=== PATIENT | female | born 1950 | race Caucasian/White ===

== ENCOUNTER 2024-01-06 18:11 | Emergency (ER) | payer MEDICARE, SELFPAY ==
--- NOTE | ~2024-01-06 | CT_ITS ---
CTA chest abdomen pelvis Ordering provider: Murray Hennessy MD History: . rectal bleeding, concern for ca. . Comparison: None. Technique: CT angiogram chest, abdomen and pelvis was performed following timed intravenous injection of contrast. Thin slice axial images and reformatted coronal images were obtained. Three dimensional reformatted images of the chest were also obtained using a [employer] workstation. 100 mL Omnipaque 350 was given IV. Radiation reduction technique utilized. DLP is 1893.31mGy-cm. FINDINGS: CHEST: --THORACIC AORTA: Mild atheromatous disease. No aneurysm, dissection or mediastinal hematoma. --GREAT VESSELS: Normal as visualized. --PULMONARY ARTERIES: No pulmonary embolus. --VISUALIZED THORACIC INLET: Normal. --MEDIASTINUM: Coronary arteries: Mild atheromatous disease. Heart/other: The heart is not enlarged. Lymph nodes: No mediastinal or hilar adenopathy. --LUNGS: Groundglass appearance is seen in both lungs suggestive of atelectasis versus pneumonia versus pulmon rashmi edema. Nodule is seen in the right lower lobe measuring 6 mm. Adjacent smaller nodules are also n oted. 5 mm nodule is seen in the right upper lobe. Thickening of the pleura with minimal effusion see n in the lung bases posteriorly. No pulmonary masses. No effusions. No pneumothorax. --MUSCULOSKELETAL: Superficial soft tissues: The superficial soft tissues are normal. Bones: Age appropriate degenerative changes of the spine. ABDOMEN/PELVIS: --MUSCULOSKELETAL: Bones: Age appropriate degenerative changes of the spine. Pubic symphysitis. Bilateral sacroiliitis. Superficial soft tissues: Fat containing umbilical hernia is noted. Otherwise, The superficial soft t issues are normal. --UPPER ABDOMINAL ORGANS: Liver: Hepatomegaly. Gallbladder: Normal. Spleen: 2 cystic areas are seen in the spleen with the largest measures 5.5 cm and the smallest measu res 2.4 cm. These may be cysts and less likely abscess. Smaller one is also seen inferiorly measuring 1.1 cm Clinical correlation advised. Stomach/duodenum: Normal. Pancreas: Normal. Adrenals: Normal. Kidneys: The right kidney is not demonstrated. --PELVIC ORGANS: The bladder is normal. No bladder stones. The uterus is normal. --BOWEL AND MESENTERY: Colon: Multiple diverticula with hyperdense material is seen which may be fecal material. No definite active bleeding. Normal appendix. Small Bowel: Normal. No obstruction. Peritoneum/mesentery: No free air or free fluid. No mesenteric lymphadenopathy. --RETROPERITONEUM: No retroperitoneal lymphadenopathy. --ARTERIES: ABDOMINAL AORTA: Mild atheromatous disease. No aneursym or dissection. RENAL ARTERIES: Mild atherosclerotic changes on the left. The right kidney is absent. CELIAC AXIS: Atherosclerotic changes. SMA: Atherosclerotic changes. PAMELA: Atherosclerotic changes at the origin. ILIAC AND VISUALIZED FEMORAL ARTERIES: Atherosclerotic changes. MESENTERIC ARTERIES: Normal. IMPRESSION: CHEST: 1. No pulmonary embolism or aortic dissection. 2. Bilateral groundglass appearance which may indicate infection or edema or atelectasis. Clinical c orrelation advised. 3. Nodule seen in the right lower lobe measuring 6 mm. Other multiple small nodules are seen. 6 cristóbal hs follow-up advised. ABDOMEN/PELVIS: 1. No evidence of active bleeding seen in the perirectal area or in the colon. Multiple diverticula with hyperdense material most likely fecal material. Colonoscopy is advised. 2. Cystic areas in the spleen which are most likely cysts. Ultrasound evaluation advised. 3. Nonvisualization of the right kidney. Clinical correlation advised. 4. mild atherosclerotic changes in multiple vessels with no definite significant narrowing. 5. Fat-containing umbilical hernia.
[2024-01-06 18:15] VITALS: BP 125/77; PULSE 95; RESP 18; TEMP 36.2; O2SAT 91
--- NOTE | 2024-01-06 19:00 | PC.NURSE ---
assumed care. report received from Seema SMITH. patient is resting on stretcher. call light in reach
--- NOTE | 2024-01-06 19:10 | ED.GIBLEED ---
HPI - GI Bleed General Chief complaint: GI Bleed Stated complaint: RECTAL BLEEDING Time Seen by Provider: 01/06/24 19:05 Limitations: no limitations History of Present Illness HPI Narrative: 73-year-old white female with a history of diabetes, hypertension, hypo thyroidism, apparently on Coumadin but does not seem to know why presents with an episode a little bit before arrival where she felt the urge to defecate, dried up and headed towards the bathroom, was unable to make it in time, was incontinent just as she got to the stool, sat down on the commode finished up, and there was blood in the stool, and some blood clots in her underwear. She denies any symptoms prior to this episode, reports she was completely surprised. she denies recent sinus drainage, sore throat, cough, chest pain, palpitations, near-syncope or syncope, shortness of breath, denied abdominal pain, nausea vomiting, diarrhea or constipation, black stool, tarry stools, dysuria urgency, reports she always has frequency. Related Data Home Medications Medication Instructions Recorded Confirmed atorvastatin 40 mg tablet 40 mg PO DAILY 01/06/24 01/06/24 glimepiride 2 mg tablet 2 mg PO DAILY 01/06/24 01/06/24 levothyroxine 75 mcg tablet 1 mcg PO DAILY 01/06/24 01/06/24 lisinopril 10 1 tablet PO DAILY 01/06/24 01/06/24 mg-hydrochlorothiazide 12.5 mg tablet metformin 500 mg tablet,extended 300 mg PO TID 01/06/24 01/06/24 release 24 hr warfarin 2 mg tablet See Rx Instructions .Route .COMPLEX 01/06/24 01/06/24 Allergies Allergy/AdvReac Type Severity Reaction Status Date / Time No Known Allergies Allergy Unknown Unverified 01/06/24 18:42 LATEX Allergy Mild BLISTERS Uncoded 01/06/24 18:42 Review of Systems Review of Systems: All systems reviewed & are unremarkable except as noted in HPI and below Exam Const: General: no acute distress, alert and well nourished Nutritional Appearance: well nourished and obese ( severe central morbid obesity with massive pannus) Orientation/consciousness: patient oriented x3 Limitations: no limitations HENMT: Head: normal to inspection Ears: external ears normal Face/Nose/Sinus: Normal external nose present and normal facial exam Face and sinus: normal facial exam Mouth: Yes Normal oral and palatal mucosa present Teeth and gingiva: dentition normal Throat: posterior oropharynx normal Eyes: Conjunctivae: conjunctivae normal Pupils: Equal, round and reactive pupils present EOM: EOMs intact bilaterally Neck: Neck: normal visual inspection and no meningeal signs Chest: Chest palpation & inspection: normal inspection of the chest Resp: Effort & Inspection: normal respiratory effort Auscultation: clear to auscultation bilaterally Other: muffled and distant Cardio: Rate: regular rate Rhythm: regular rhythm Other: muffled and distant GI: GI Palp: Yes Soft to palpation, Yes Tenderness to palpation present (GI), No Guarding due to palpation present (GI), No Rigid due to palpation and No Rebound tenderness present Other: No mass, no organomegaly, no percussion or rebound tenderness massive pannus Skin: Wounds: no wounds Other: patient with thickened lower extremities skin with some pigmentation, brawny edema, consistent with chronic venous stasis, no evidence of cellulitis Neuro: General: patient oriented x3, moves all extremities, no meningeal signs, no focal motor deficits and CN's II-XI intact bilaterally Cranial nerves: Yes Equal, round and reactive pupils present and Yes Nystagmus not present Speech: normal speech Gait exam (Neuro): Normal gait present Extrem: Other: as noted above Psych: Mental Status: mental status grossly normal Attitude: cooperative Course Vital Signs Vital signs: Vital Signs Temperature 36.2 C L 01/06/24 18:15 Pulse Rate 95 01/06/24 18:15 Respiratory Rate 18 01/06/24 18:15 Blood Pressure 125/77 01/06/24 18:15 Pul
[2024-01-06 19:11] VITALS: BP 120/83; PULSE 86; RESP 18; O2SAT 92
[2024-01-06] MEDS: PANTOPRAZOLE SODIUM IV 40 MG VIAL 80 MG IV PUSH (19:28)
[2024-01-06] MEDS: LACTATED RINGERS 1,000 ML 999 ML IV CONT (19:28)
[2024-01-06 19:30] LABS: Basophils Absolute Auto 0.05 K/mm3 (0.00-0.10); Basophils Percent Auto 0.6 % (0.0-1.0); Eosinophils Absolute Auto 0.15 K/mm3 (0.02-0.50); Eosinophils Percent Auto 1.9 % (1.0-6.0); Hematocrit 40.2 % (35.0-42.0); Hemoglobin 13.1 g/dL (11.7-13.8); Immature Granulocyte Absolute 0.08 K/mm3 (0.00-0.00); Lymphocytes Absolute Auto 2.05 K/mm3 (1.10-4.50); Mean Corpuscular HGB Conc 32.6 g/dL (32-36); Mean Corpuscular Hemoglobin 33.9 pg (27.0-31.0); Mean Corpuscular Volume 103.9 fL (78.0-102.0); Mean Platelet Volume 9.9 fl (9.2-11.8); Monocytes Absolute Auto 0.58 K/mm3 (0.10-0.90); Monocytes Percent Auto 7.4 % (2.0-11.0); Neutrophils Absolute Auto 4.97 K/mm3 (1.70-7.20); Neutrophils Percent Auto 63.1 % (50.0-70.0); Platelet Count Result 194 K/mm3 (150-420); Red Blood Count 3.87 M/mm3 (4.20-5.40); Red Cell Distribution Width 13.2 % (11.6-14.4); White Blood Count 7.9 K/mm3 (4.8-10.8)
--- NOTE | 2024-01-06 19:32 | PC.NURSE ---
urine taken to the lab
[2024-01-06 19:45] LABS: Alanine Aminotransferase 24 U/L (14-59); Albumin Level 2.9 g/dL (3.4-5.0); Alkaline Phosphatase 87 U/L (46-116); Anion Gap 10 mmol/L (4-12); Aspartate Amino Transferase 12 U/L (15-37); Bilirubin,Total 0.2 mg/dL (0.00-1.00); Blood Urea Nitrogen 15 mg/dL (7-18); Calcium 8.3 mg/dL (8.5-10.1); Carbon Dioxide 26 mmol/L (21-32); Chloride 106 mmol/L (98-108); Estimated CRCL calculation 58 ml/min; Estimated Glomerular Filt Rate 53; Glucose 334 mg/dL (70-99); Lipase 28 U/L (16-77); Magnesium 1.5 mg/dL (1.8-2.4); Osmolality Calculated 307 mOsm/kg (285-295); Potassium 4.4 mmol/L (3.5-5.1); Sodium 142 mmol/L (136-145); Total Protein 6.3 g/dL (6.4-8.2)
[2024-01-06 19:52] LABS: INR 4.2; Partial Thromboplastin Time 38.3 Sec (23.9-30.70); Prothrombin Time 41.5 Seconds (9.50-12.1)
--- NOTE | 2024-01-06 20:10 | PC.NURSE ---
patient was taken to ct and back to room via stretcher. at her side
--- NOTE | 2024-01-06 20:21 | PC.NURSE ---
patient is resting on stretcher. currently denies any needs. LR continues to infuse to left ac without difficulty. encouraged patient to keep left arm straight to help fluids infuse. patient verbalized understanding. call light in reach
--- NOTE | 2024-01-06 21:15 | PC.NURSE ---
patient is resting on stretcher. is at her side. call light in reach. patient ambulated to the bathroom and back to room without difficulty.
--- NOTE | 2024-01-06 22:08 | PC.NURSE ---
resting on stretcher. requesting results. informed patient that provider would be down soon to talk to her about results. patient is watching tv with
--- NOTE | 2024-01-06 22:20 | PC.NURSE ---
apologized to patient and for delay in care. currently awaiting ct results. patient getting frustrated in length of stay
--- NOTE | 2024-01-06 23:11 | PC.NURSE ---
patient is ready to go home. is pacing in the hallway. er provider is aware
--- NOTE | 2024-01-06 23:18 | PC.NURSE ---
patient wanted iv line removed. done. patient reports that she will be leaving with or without discharge instructions. dr gaston has been notified.
--- NOTE | 2024-01-06 23:40 | PC.NURSE ---
ER provider at the bedside
[2024-01-06 23:48] VITALS: BP 126/80; PULSE 82; RESP 18; O2SAT 96
--- NOTE | 2024-01-07 12:47 | PC.NURSE ---
PT CALLED, RX WAS NOT RECEIVED ORDERED PER DR ABEBE. CALL PLACED TO [facility] . RX FOR ZOFRAN AND PROTONIX CALLED IN .
--- NOTE | 2024-01-07 12:59 | PC.NURSE ---
RX CALLED IN TO [facility]
== END 2024-01-06 23:48 | disposition home or self-care (01) ==
PROVIDERS: Emergency Provider Emergency Medicine; PCP Family Medicine
DX: K62.5 Hemorrhage of anus and rectum (principal); D68.9 Coagulation defect, unspecified; E11.9 Type 2 diabetes mellitus without complications; I10 Essential (primary) hypertension; E03.9 Hypothyroidism, unspecified; Z79.01 Long term (current) use of anticoagulants; Z79.899 Other long term (current) drug therapy; Z79.84 Long term (current) use of oral hypoglycemic drugs; Z86.711 Personal history of pulmonary embolism; Z86.718 Personal history of other venous thrombosis and embolism
CPT/HCPCS: 36415; 71275; 74174; 80053; 83690; 83735; 85025; 85610; 85730; 86850; 86900; 86901; 96361; 96374; 99284; J2470; J7120; Q9967

== ENCOUNTER 2024-03-02 21:23 | Emergency (ER) | payer MEDICARE, SELFPAY ==
[2024-03-02] VITALS (11 sets, daily range): BP systolic 90–138; BP diastolic 43–68; PULSE 112–133; RESP 18–34; TEMP 37.3; O2SAT 88–93
--- NOTE | ~2024-03-02 | CT_ITS ---
EXAMINATION: CTA chest PE protocol DATE: 03/02/2024 23:24 INDICATION: Shortness of breath. TECHNIQUE: Computed tomography angiography (CTA) of the chest was performed with 200 mL Omnipaque-350 intravenous contrast timed to evaluate the pulmonary arteries. Coronal maximum intensity projection 3D-reconstructions were created by the technologist. Automated exposure control and iterative reconst ruction technique were employed. The dose-length product was 993.43 mGy-cm. COMPARISON: Chest CT 01/06/2024 FINDINGS: The lungs demonstrate mild atelectasis. No pleural effusion. The heart size is normal. Ther e are coronary artery calcifications. No pericardial effusion. There is no pulmonary embolus. There i s a small sliding hiatal hernia. There is a 6.5 cm mass in the spleen. There is a 1.6 cm cyst in the spleen. There are bridging endplate osteophytes at multiple levels in the spine, consistent with diff use idiopathic skeletal hyperostosis (DISH). There is severe cervical spondylosis. IMPRESSION: 1. No pulmonary embolus. 2. 6.5 cm mass in the spleen, which may be benign or less likely malignant. PET/CT is recommended. Reviewed, dictated and finalized at location A. IMPRESSION: 1. No pulmonary embolus. 2. 6.5 cm mass in the spleen, which may be benign or less likely malignant. PET /CT is recommended.
--- NOTE | ~2024-03-02 | XR_ITS ---
EXAMINATION: XR chest 1V portable DATE: 03/02/2024 21:57 INDICATION: Fever. TECHNIQUE: A single frontal view of the chest was obtained. COMPARISON: Chest 2 views 03/22/2005, chest CT 01/06/2024 FINDINGS: There is no pneumonia, pleural effusion, or pneumothorax. The heart size is normal. IMPRESSION: 1. No acute cardiopulmonary disease. Reviewed, dictated and finalized at location A.
--- NOTE | 2024-03-02 21:28 | PC.NURSE ---
patient being taken down to bathroom via wheel chair to give urine sample by Shamika cardoza
--- NOTE | 2024-03-02 21:38 | PC.NURSE ---
patient was unable to give urine sample at this time. ER provider aware. COVID swab being obtained by nani Wick
--- NOTE | 2024-03-02 21:40 | PC.NURSE ---
covid swab sent to lab
--- NOTE | 2024-03-02 21:40 | ED.FEVER ---
HPI - Fever General Chief Complaint: Fever Stated Complaint: Chills Source: patient Mode of arrival: ambulatory Limitations: no limitations History of Present Illness HPI Narrative: Patient is a 73-year-old female with chills this evening that makes her shake for the past few hours. She is slightly short of breath on exertion. Otherwise no complaints. patient also has diabetes and history of PE DVT / genetics positive for blood clotting disorder. Patient has left kidney and right kidney was removed with cancer 18 years ago. MD elicited complaint: malaise and other ( Chills) Pertinent past history: diabetes Onset (ago): hour(s) (3) Context: other ( acute onset of chills this evening with no other major complaints except some shortness of breath with exertion) Exacerbating factors: nothing Relieving factors: nothing Associated symptoms: chills, rigors and shortness of breath Treatments prior to arrival fever: none Related Data Home Medications Medication Instructions Recorded Confirmed atorvastatin 40 mg tablet 40 mg PO DAILY 01/06/24 01/06/24 glimepiride 2 mg tablet 2 mg PO DAILY 01/06/24 01/06/24 levothyroxine 75 mcg tablet 1 mcg PO DAILY 01/06/24 01/06/24 lisinopril 10 1 tablet PO DAILY 01/06/24 01/06/24 mg-hydrochlorothiazide 12.5 mg tablet metformin 500 mg tablet,extended 300 mg PO TID 01/06/24 01/06/24 release 24 hr warfarin 2 mg tablet See Rx Instructions .Route .COMPLEX 01/06/24 01/06/24 Allergies Allergy/AdvReac Type Severity Reaction Status Date / Time No Known Allergies Allergy Unknown Unverified 01/06/24 18:42 LATEX Allergy Mild BLISTERS Uncoded 01/06/24 18:42 Review of Systems Review of Systems: All systems reviewed & are unremarkable except as noted in HPI and below Constitutional: Constitutional: Reports no additional constitutional complaints Eyes: Eyes: Reports no additional eye complaints ENT: Reports system reviewed and no additional complaints, except as documented Cardiovascular: Cardiovascular: Reports no additional cardiovascular complaints Respiratory: Respiratory: Reports no additional respiratory complaints Gastrointestinal: Gastrointestinal: Reports no additional gastrointestinal complaints Genitourinary: Genitourinary: Reports no additional female genitourinary complaints Musculoskeletal: Musculoskeletal: Reports no additional musculoskeletal complaints Integumentary/Breasts: Skin/Breast: Reports system reviewed and no additional complaints, except as docu Neurologic: Reports system reviewed and no additional complaints, except as documented Psychiatric: Psychiatric: Reports no additional psychiatric complaints Endocrine: Endocrine: Reports no additional endocrine complaints Hematologic/Lymphatic: Hematologic/Lymphatic: Reports no additional hematologic/lymphatic complaints Allergic/Immunologic: Allergic/Immunologic: Reports no additional allergic/immunologic complaints Exam Const: General: ill appearing Nutritional Appearance: well nourished Orientation/consciousness: patient oriented x3 Limitations: no limitations HENMT: Head: normal to inspection Ears: external ears normal Face/Nose/Sinus: Normal external nose present Eyes: Conjunctivae: conjunctivae normal Pupils: Equal, round and reactive pupils present EOM: EOMs intact bilaterally Neck: Neck: normal visual inspection Chest: Chest palpation & inspection: normal inspection of the chest Resp: Effort & Inspection: normal respiratory effort and not labored Auscultation: not clear to auscultation bilaterally and crackles on the left at the base Cardio: Rate: tachycardic Rhythm: regular rhythm Heart sounds: no murmurs GI: Inspection: non-distended GI Palp: Yes Soft to palpation and No Tenderness to palpation present (GI) Auscultation: normal bowel sounds : General: Yes bladder normal to palpation Back/Spine/Pelvis: Back: no CVA tenderness Skin: General skin exam: normal color Rashes: no
--- NOTE | 2024-03-02 21:46 | PC.NURSE ---
Chula with lab was notified of new lab orders
--- NOTE | 2024-03-02 21:52 | PC.NURSE ---
xray at the bedside
[2024-03-02 22:16] LABS: Basophils Absolute Auto 0.04 K/mm3 (0.00-0.10); Basophils Percent Auto 0.5 % (0.0-1.0); Eosinophils Absolute Auto 0.05 K/mm3 (0.02-0.50); Eosinophils Percent Auto 0.6 % (1.0-6.0); Hematocrit 43.8 % (35.0-42.0); Hemoglobin 14.4 g/dL (11.7-13.8); Immature Granulocyte Absolute 0.05 K/mm3 (0.00-0.00); Immature Granulocyte Percent A 0.6 % (0.0-0.0); Lymphocytes Absolute Auto 0.42 K/mm3 (1.10-4.50); Lymphocytes Percent Auto 5.2 % (18.0-42.0); Mean Corpuscular HGB Conc 32.9 g/dL (32-36); Mean Corpuscular Hemoglobin 33.6 pg (27.0-31.0); Mean Corpuscular Volume 102.3 fL (78.0-102.0); Mean Platelet Volume 10.7 fl (9.2-11.8); Monocytes Percent Auto 2.5 % (2.0-11.0); Neutrophils Absolute Auto 7.35 K/mm3 (1.70-7.20); Neutrophils Percent Auto 90.6 % (50.0-70.0); Platelet Count Result 172 K/mm3 (150-420); Red Blood Count 4.28 M/mm3 (4.20-5.40); Red Cell Distribution Width 13.4 % (11.6-14.4); White Blood Count 8.1 K/mm3 (4.8-10.8)
--- NOTE | 2024-03-02 22:16 | PC.NURSE ---
patient up to bedside commode with oxygen in place. patient being helped by nani mendez
[2024-03-02 22:24] LABS: Add Urine Microscopic? YES; Appearance Urine Clear (Clear); Bilirubin Urine Negative (Negative); Blood Urine 1+ (Negative); Color Urine Light Yellow (Yellow); Glucose Urine UA 3+ (Negative); Ketones Urine Negative (Negative); Leukocyte Esterase Ur Negative LEU/UL (Negative); Nitrate Urine Positive (Negative); Protein Urine Negative (Negative); Urobilinogen Urine 0.2 mg/dL (0.2-1.0); pH Urine 5.5 (5.0-8.0)
--- NOTE | 2024-03-02 22:26 | PC.NURSE ---
WOB is labored when patient is getting in and out of bed to stretcher. currently, while patient is resting, she is at 91% on 2 liters nc.
[2024-03-02 22:31] LABS: INR 3.8; Partial Thromboplastin Time 36.2 Sec (23.9-30.70); Prothrombin Time 37.6 Seconds (9.50-12.1)
[2024-03-02 22:34] LABS: Bacteria Urine Trace /hpf; RBC Urine 21-50 /hpf (0-2); Squamous Epithelial Cell Urine Few /hpf (Few); WBC Urine 0-3 /hpf (0-3)
[2024-03-02 22:35] LABS: SARS-CoV-2 RNA PCR Negative (Negative)
[2024-03-02 22:38] LABS: Lactic Acid Reflex 2.1 mmol/L (0.4-2.0)
[2024-03-02 22:39] LABS: Alanine Aminotransferase 25 U/L (14-59); Albumin Level 3.1 g/dL (3.4-5.0); Alkaline Phosphatase 107 U/L (46-116); Anion Gap 10 mmol/L (4-12); Aspartate Amino Transferase 27 U/L (15-37); Bilirubin,Total 0.6 mg/dL (0.00-1.00); Blood Urea Nitrogen 24 mg/dL (7-18); Calcium 8.9 mg/dL (8.5-10.1); Carbon Dioxide 25 mmol/L (21-32); Chloride 101 mmol/L (98-108); Estimated Glomerular Filt Rate 44; Glucose 383 mg/dL (70-99); NT Pro B Type Natriuretic Pept 66 pg/mL (0-125); Osmolality Calculated 302 mOsm/kg (285-295); Potassium 4.6 mmol/L (3.5-5.1); Sodium 136 mmol/L (136-145); Total Protein 7.1 g/dL (6.4-8.2)
[2024-03-02 22:41] LABS: Influenza A QL RT-PCR Negative (Negative); Influenza B QL RT-PCR Negative (Negative); RSV RNA, RT-PCR Negative (Negative)
[2024-03-02] MEDS: PIPERACILLN/TAZ 3.375GM/NS50ML 3.375 GM/50 ML BAG IVPB (22:50)
[2024-03-02] MEDS: SODIUM CHLORIDE 0.9% IV 1,000 ML 999 ML IV CONT (22:50)
--- NOTE | 2024-03-02 22:55 | PC.NURSE ---
patient being transported to ct via stretcher.
--- NOTE | 2024-03-02 23:25 | PC.NURSE ---
patient returned to room via stretcher. placed back on compliance monitor. wob non labored while patient resting on stretcher. continues to have oxygen on at 2 liters nc
[2024-03-03] VITALS (30 sets, daily range): BP systolic 79–121; BP diastolic 42–82; PULSE 78–114; RESP 16–31; O2SAT 87–97
--- NOTE | 2024-03-03 00:08 | PC.NURSE ---
oxygen was turned off for ABG draw. SPO2 readings at 88% before turning oxygen back on to 2 liters
[2024-03-03 00:09] LABS: Base Excess ABG -1.1 mmol/L (0-2); HCO3 ABG 22.5 mmol/L (23-29); Oxygen Content ABG 17.3 %vol (16.0-22.0); Oxygen Saturation ABG 88.4 % (95-97); Oxyhemoglobin 87.5 % (94-100); PCO2 ABG 34.3 mmHg (35-45); pH ABG 7.44 (7.35-7.45)
[2024-03-03 00:18] LABS: Device ROOM AIR; Modified Allen's Test Pass; Site Drawn LEFT RADIAL
--- NOTE | 2024-03-03 00:18 | PC.NURSE ---
patient currently sitting on the side of the bed. states i cant lay on this hard stretcher anymore . patient then laughed at this RN. is at her side. call light in reach
[2024-03-03 00:19] LABS: Reflex Lactic Acid Yes or No Add Lactic
--- NOTE | 2024-03-03 00:26 | PC.NURSE ---
patient is up to bedside commode. standing out in the hallway. wob labored with exertion.
[2024-03-03 00:38] LABS: Lactic Acid 1.7 mmol/L (0.4-2.0)
--- NOTE | 2024-03-03 00:39 | PC.NURSE ---
patient is now sitting up in chair in the room. reports that she sleeps in a recliner at home. unable to lay back fully. is at her side. call light in reach.
[2024-03-03] MEDS: SODIUM CHLORIDE 0.9% IV 1,000 ML 999 ML IV CONT ×3 (00:44→02:19)
--- NOTE | 2024-03-03 01:37 | PC.NURSE ---
dr varma notified of current blood pressure
--- NOTE | 2024-03-03 01:49 | PC.NURSE ---
patient sitting up in chair. patient denies any symptoms. patient states that she feels good. blood pressure cuff has been moved around to bilateral arms. patient can not tolerate blood pressure being taken on her upper arms.
--- NOTE | 2024-03-03 03:00 | PC.NURSE ---
patient got up to use bedside commode. patient spo2 readings at 87% on 2 liters nc. wob labored with exertion. while patient was sitting on the bedside commode, spo2 readings would raise. patient denies any other symptoms other than exertional dyspnea at this time
[2024-03-03] MEDS: SODIUM CHLORIDE 0.9% IV 1,000 ML 150 ML IV CONT (03:02)
[2024-03-03] MEDS: PHYTONADIONE 5 MG TABLET 10 MG PO (03:37)
--- NOTE | 2024-03-03 04:18 | PC.NURSE ---
patient got self up to bedside commode. at her side.
[2024-03-03] MEDS: NOREPINEPHRINE 8 MG/D5W 250 ML 8 MG/250 ML BAG 9.38 MG IV CONT (04:58)
--- NOTE | 2024-03-05 13:09 | PC.NURSE ---
FINAL URINE CULTURE REPORT: MIXED GENITAL ROSLYN ISOLATED, NO FURTHER ORGANISM IDENTIFIED, NO FURTHER ACTION OR TREATMENT NEEDED.
--- NOTE | 2024-03-10 12:18 | PC.NURSE ---
FINAL BLOOD CULTURE REPORT: NO GROWTH AFTER 5 DAYS, NO FURTHER ACTION OR TREATMENT NEEDED.
== END 2024-03-03 05:25 | disposition short-term general hospital (02) ==
PROVIDERS: Emergency Provider Emergency Medicine; PCP Family Medicine
DX: A41.9 Sepsis, unspecified organism (principal); J18.9 Pneumonia, unspecified organism; R09.02 Hypoxemia; E11.9 Type 2 diabetes mellitus without complications; Z86.711 Personal history of pulmonary embolism; Z20.822 Contact with and (suspected) exposure to COVID-19
CPT/HCPCS: 36415; 36600; 71045; 71275; 80053; 81001; 82805; 83605; 83880; 85018; 85025; 85610; 85730; 87040; 87086; 87088; 87637; 96361; 96365; 96367; 99285; A9270; J2543; J7030; Q9967

== ENCOUNTER 2024-03-03 06:15 | Inpatient (IN) | payer MEDICARE, SELFPAY ==
[2024-03-03] VITALS (20 sets, daily range): BP systolic 96–127; BP diastolic 57–81; PULSE 78–94; RESP 15–25; TEMP 36.4–36.8; O2SAT 91–99; BMI 54.8
--- NOTE | ~2024-03-03 | XR_ITS ---
EXAMINATION: XR chest PICC line DATE: 03/03/2024 09:38 INDICATION: Sepsis. PICC line placement. TECHNIQUE: frontal view of the chest was obtained. COMPARISON: Chest radiograph and CT dated 03/02/2024 FINDINGS: Right upper extremity peripherally inserted central venous catheter (PICC) tip at the superior cavoa trial junction. Incidentally noted azygos lobe and fissure at the medial right upper lung zone. No ai rspace opacities, pulmonary edema, pleural effusion or pneumothorax. The cardiomediastinal silhouette is normal. IMPRESSION: 1. Right upper extremity PICC line tip at the superior cavoatrial junction. No acute cardiopulmonary disease. Reviewed, dictated and finalized at location A.
--- NOTE | 2024-03-03 06:13 | ADMGEN ---
This patient, Chelsey Ordaz, was admitted to Intensive Care Unit-6. Patient/family oriented to hospital policies and general routines including ID bracelet, bed and alarms, visiting hours, pain management, procedures, bathroom and other care routines, personal items, smoking policy, room service/diet, and visiting hours. Information on how to activate the Rapid Response Team has been discussed. Patient/Family are encouraged to report perceived risks to care and to ask questions if they do not understand what they are told or what they should do.
[2024-03-03 06:55] LABS: Basophils Absolute Auto 0.1 K/mm3 (0.0-0.1); Basophils Percent Auto 0.5 % (0.2-1.2); Eosinophils Percent Auto 0.4 % (0-4.4); Hematocrit 42.5 % (37.0-47.0); Hemoglobin 13.4 g/dL (12.0-15.0); Immature Granulocyte Absolute 0.05 K/mm3 (0.00-0.031); Immature Granulocyte Percent A 0.5 % (0-0.5); Lymphocytes Percent Auto 13.6 % (18.3-44.2); Mean Corpuscular HGB Conc 31.5 g/dl (32-36); Mean Corpuscular Hemoglobin 33.4 pg (26-34); Mean Platelet Volume 9.9 fl (7.4-10.4); Monocytes Absolute Auto 0.8 K/mm3 (0.1-0.6); Monocytes Percent Auto 7.1 % (2.6-8.5); Neutrophils Absolute Auto 8.6 K/mm3 (1.3-6.7); Neutrophils Percent Auto 77.9 % (45.5-73.1); Platelet Count Result 159 k/mm3 (150-375); Red Blood Count 4.01 M/mm3 (4.2-5.4); Red Cell Distribution Width 13.4 % (11.5-14.5)
[2024-03-03 07:04] LABS: Anion Gap 8 mmol/L (4-12); Blood Urea Nitrogen 20 mg/dL (7-17); Calcium 7.8 mg/dL (8.4-10.2); Carbon Dioxide 23 mmol/L (22-30); Chloride 106 mmol/L (98-107); Estimated CRCL calculation 73 ml/min; Estimated Glomerular Filt Rate > 60; Glucose 294 mg/dL (65-110); Lactic Acid Reflex 1.4 mmol/L (0.7-2.0); Magnesium 1.8 mg/dL (1.6-2.3); Sodium 137 mmol/L (137-145)
[2024-03-03 07:15] LABS: INR 2.5; Partial Thromboplastin Time 37.3 Seconds (22.3-36.8); Prothrombin Time 27.2 Seconds (11.1-14.7)
[2024-03-03 08:04] LABS: MRSA (PCR) NOT DETECTED (NOT DETECTE)
[2024-03-03 08:33] LABS: Glucose Point of Care 240 mg/dl (65-105)
--- NOTE | 2024-03-03 08:37 | WPDCNINT ---
Assessment and Plan Assessment and plan (1) Severe sepsis: Code(s): A41.9 - Sepsis, unspecified organism; R65.20 - Severe sepsis without septic shock Status: Acute Assessment and Plan: Patient presented with fevers and chills, malaise, hypotension requiring 4 L IV fluid bolus at the outside hospital ER despite which her blood pressures are low, patient was briefly started on phenylephrine and transferred to the ICU at [facility] -upon her arrival here at the ICU, blood pressures were stable, phenylephrine was discontinued, and patient remains off vasopressor -lactic acid 2.1 on admission, 1.4 this morning -blood pressures remain stable, not requiring any vasopressors -03/02/2024 blood cultures obtained and pending -03/22/2024 urine cultures obtained and pending -03/03: MRSA screen negative -patient started on Zosyn and vancomycin (03/02), will continue for now -03/02/2024 CTA chest: 1. No pulmonary embolus. 2. 6.5 cm mass in the spleen, which may be benign or less likely malignant. PET/CT is recommended. -03/02/2024 chest x-ray: No acute cardiopulmonary disease (2) History of pulmonary embolism: Code(s): Z86.711 - Personal history of pulmonary embolism Status: Inactive Assessment and Plan: Patient has a history of pulmonary embolism on Coumadin, therapeutic INR (3) Hypothyroidism: Code(s): E03.9 - Hypothyroidism, unspecified Status: Acute Assessment and Plan: Continue levothyroxine (4) Hyperlipidemia: Code(s): E78.5 - Hyperlipidemia, unspecified Status: Acute Assessment and Plan: Continue home statin (5) GERD (gastroesophageal reflux disease): Code(s): K21.9 - Gastro-esophageal reflux disease without esophagitis Status: Acute Assessment and Plan: Continue home Protonix (6) Diabetes: Code(s): E11.9 - Type 2 diabetes mellitus without complications Status: Acute Assessment and Plan: Has a history of diabetes, with hyperglycemia. Patient on semaglutide, Jardiance, glimepiride at home -continue home medications -will check A1c -continue Accu-Cheks and sliding scale insulin (7) Hypertension: Code(s): I10 - Essential (primary) hypertension Status: Acute Assessment and Plan: Patient has a history of essential hypertension on lisinopril/hydrochlorothiazide 10/12.5 mg tab at home -will hold antihypertensives at this time given patient with severe sepsis and hypotension Plan DVT prophylaxis: On Coumadin will continue Stress ulcer prophylaxis: Protonix Nutrition: Diabetic diet Code Status: Full code Critical Care Time Spent: 49 minutes Discussed with patient updated with her condition and plan of care. She is aware that she will be getting a PICC line to which she consented. She is also aware that she is on antibiotics for possible UTI and/or bacteremia Due to a high probability of clinically significant, life threatening deterioration, the patient required my highest level of preparedness to intervene emergently and I personally spent this critical care time directly and personally managing the patient. This critical care time included obtaining a history; examining the patient; pulse oximetry; ordering and review of studies; arranging urgent treatment with development of a management plan; evaluation of patient's response to treatment; frequent reassessment; and discussions with other providers. It was exclusive of separately billable procedures and treating other patients and teaching time. Please see Assessment and Plan section and the rest of the note for further information on patient assessment and treatment This dictation may have been done utilizing a voice recognition system. Attempts have been made to correct errors. However, there may be uncorrected grammatical, spelling, and recognitions errors present. Clinical Dermatologist Consult Note Consult date: 03/03/24 Reason for consult: Paula
[2024-03-03] MEDS: IPRATROPIUM 0.5 MG/ALBUTEROL SULFATE 2.5 MG AMPUL.NEB 3 ML NEBULIZE ×3 (08:41→19:40)
[2024-03-03] MEDS: LIDOCAINE HCL 1% PF INJ 5 ML VIAL INFILTRATE (09:00)
[2024-03-03 09:45] LABS: Glucose Point of Care 233 mg/dl (65-105)
[2024-03-03] MEDS: ATORVASTATIN 40 MG TABLET PO (09:51)
[2024-03-03] MEDS: PIPERACILLN/TAZ 3.375GM/NS50ML 3.375 GM/50 ML BAG IVPB ×4 (09:51→23:32)
[2024-03-03] MEDS: VANCOMYCIN 1,250 MG/NS 250 ML 1,250 MG/250 ML BAG 166.67 MG IVPB ×2 (09:52→09:55)
[2024-03-03] MEDS: GLIMEPIRIDE 2 MG TABLET 4 MG PO (09:52)
[2024-03-03] MEDS: INSULIN ASPART (*BKC) 100 UNITS/ML SUB-Q ×2 (09:53→11:58)
[2024-03-03 11:55] LABS: Glucose Point of Care 219 mg/dl (65-105)
--- NOTE | 2024-03-03 12:12 | PM.IMHP ---
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 Patient noted that she presented to an outside ER on account of her choosing Reglan, which started about 7:00 p.m. last night with shortness of breath but denies any chest pain vomiting abdominal pain no diarrhea dysuria urinary frequency no focal symptoms. She reported she presented to the ER on account of persistent symptoms. [facility]. Our transfer facility patient was noted to be hypertensive with tachycardia and was given 4 L of IV fluids pressure trend. CTA chest showed sees 0.5 cm splenic mass and PET/CT scan recommended. No PE or lung findings. UA positive for nitrates and WBCs 0-3. Patient was started on antibiotics and transferred to our facility for higher level of care. Review of Systems Review of Systems: All other systems reviewed and negative except as noted in history above. [facility] Family History Family History (Updated 03/03/24 @ 06:58 by Tanja Gibbs RN) Father Cerebrovascular accident Social History Social History Smoking status: Never smoker Alcohol intake: never Substance use: never Substance use type: does not use Do You Feel Safe in your Home?: Yes Lack of Transportation: No Lack of Food: Never True Current Housing: I Have Housing Concerned About Future Housing: No Difficulty Paying Gas/Electric Bills: No Difficulty Paying for Meds: No Currently Unemployed: No Education: High School Diploma/GED Difficulty w/ Childcare or Family Care: No Spiritual care concerns: No Meds Home Medications and Allergies Home Medications Medication Instructions Recorded Confirmed Type atorvastatin 40 mg tablet 40 mg PO DAILY 01/06/24 03/03/24 History glimepiride 2 mg tablet 4 mg PO DAILY 01/06/24 03/03/24 History levothyroxine 75 mcg tablet 1 mcg PO DAILY 01/06/24 03/03/24 History lisinopril 10 1 tablet PO DAILY 01/06/24 03/03/24 History mg-hydrochlorothiazide 12.5 mg tablet ondansetron 4 mg disintegrating 4 mg PO Q6H PRN nausea and 01/06/24 03/03/24 Rx tablet vomiting #30 tabs pantoprazole 40 mg tablet,delayed 40 mg PO HS #60 tabs 01/06/24 03/03/24 Rx release (Protonix) warfarin 2 mg tablet 4 mg PO QMWF 01/06/24 03/03/24 History albuterol sulfate 90 mcg/actuation 2 puff inhalation Q6H PRN 03/03/24 03/03/24 History aerosol inhaler (Ventolin HFA) Shortness Of Breath Or Wheezing empagliflozin 25 mg tablet 25 mg PO DAILY 03/03/24 03/03/24 History (Jardiance) semaglutide 7 mg tablet (Rybelsus) 7 mg PO DAILY 03/03/24 03/03/24 History warfarin 2 mg tablet 5 mg PO [id number] 03/03/24 03/03/24 History Allergies Allergy/AdvReac Type Severity Reaction Status Date / Time No Known Allergies Allergy Unknown Unverified 01/06/24 18:42 Vital Signs Vital Signs - 24 hr 03/03/24 06:25 03/03/24 06:30 03/03/24 06:48 Temperature 98.3 F Pulse Rate 84 83 85 Respiratory Rate 15 25 H 21 H Blood Pressure 117/69 120/75 109/70 Pulse Oximetry 98 97 98 Oxygen Delivery Oxygen Flow Rate Fraction of Inspired Oxygen 03/03/24 06:30 03/03/24 08:41 03/03/24 08:41 Temperature Pulse Rate 79 Respiratory Rate 18 Blood Pressure Pulse Oximetry 97 97 Oxygen Delivery Nasal Cannula Room Air Oxygen Flow Rate 2 Fraction of Inspired Oxygen 21 03/03/24 08:46 03/03/24 08:00 03/03/24 10:00 Temperature 97.5 F L Pulse Rate 81 82 86 Respiratory Rate 20 22 H 21 H Blood Pressure 127/72 122/81 Pulse Oximetry 94 93 Oxygen Delivery Oxygen Flow Rate Fraction of Inspired Oxygen 03/03/24 08:00 03/03/24 08:00 10/0
[2024-03-03] MEDS: CENTRAL LINE FLUSH 10 ML IV PUSH ×2 (15:38→20:05)
[2024-03-03 17:01] LABS: Glucose Point of Care 155 mg/dl (65-105)
[2024-03-03 20:03] LABS: Glucose Point of Care 246 mg/dl (65-105)
[2024-03-03] MEDS: PANTOPRAZOLE 40 MG TABLET PO (20:04)
[2024-03-04] VITALS (16 sets, daily range): BP systolic 100–149; BP diastolic 67–88; PULSE 81–104; RESP 16–26; TEMP 36.4–36.8; O2SAT 92–96
[2024-03-04] MEDS: CENTRAL LINE FLUSH 10 ML IV PUSH ×3 (04:11→21:00)
[2024-03-04] MEDS: VANCOMYCIN 1,500 MG/NS 500 ML 1,500 MG/500 ML BAG 250 MG IVPB (04:11)
[2024-03-04 04:19] LABS: Basophils Percent Auto 0.3 % (0.2-1.2); Eosinophils Absolute Auto 0.2 K/mm3 (0-0.3); Eosinophils Percent Auto 2.4 % (0-4.4); Hematocrit 37.3 % (37.0-47.0); Hemoglobin 11.9 g/dL (12.0-15.0); Immature Granulocyte Absolute 0.02 K/mm3 (0.00-0.031); Immature Granulocyte Percent A 0.3 % (0-0.5); Lymphocytes Absolute Auto 1.35 K/mm3 (0.9-3.2); Lymphocytes Percent Auto 20.1 % (18.3-44.2); Mean Corpuscular HGB Conc 31.9 g/dl (32-36); Mean Corpuscular Hemoglobin 34.3 pg (26-34); Mean Corpuscular Volume 107.5 fl (80-100); Mean Platelet Volume 9.7 fl (7.4-10.4); Monocytes Absolute Auto 0.9 K/mm3 (0.1-0.6); Monocytes Percent Auto 12.7 % (2.6-8.5); Neutrophils Absolute Auto 4.3 K/mm3 (1.3-6.7); Neutrophils Percent Auto 64.2 % (45.5-73.1); Platelet Count Result 152 k/mm3 (150-375); Red Blood Count 3.47 M/mm3 (4.2-5.4); Red Cell Distribution Width 13.7 % (11.5-14.5); White Blood Count 6.7 K/mm3 (4.5-10.0)
[2024-03-04 04:30] LABS: Hemoglobin A1C 10.3 % (<5.7)
[2024-03-04 04:33] LABS: INR 1.5; Partial Thromboplastin Time 34.9 Seconds (22.3-36.8); Prothrombin Time 18.1 Seconds (11.1-14.7)
[2024-03-04 04:36] LABS: Alanine Aminotransferase 19 U/L (6-35); Alkaline Phosphatase 61 U/L (38-126); Anion Gap 5 mmol/L (4-12); Aspartate Amino Transferase 20 U/L (14-36); Bilirubin,Total 0.7 mg/dL (0.2-1.3); Blood Urea Nitrogen 14 mg/dL (7-17); Calcium 7.8 mg/dL (8.4-10.2); Carbon Dioxide 27 mmol/L (22-30); Chloride 107 mmol/L (98-107); Estimated CRCL calculation 65 ml/min; Estimated Glomerular Filt Rate > 60; Glucose 229 mg/dL (65-110); Magnesium 1.9 mg/dL (1.6-2.3); Phosphorus 3.6 mg/dL (2.5-4.5); Potassium 4.1 mmol/L (3.4-5.0); Sodium 139 mmol/L (137-145)
[2024-03-04] MEDS: PIPERACILLN/TAZ 3.375GM/NS50ML 3.375 GM/50 ML BAG IVPB ×3 (06:11→17:16)
[2024-03-04] MEDS: LEVOTHYROXINE SODIUM 75 MCG TABLET PO (06:11)
[2024-03-04] MEDS: ACETAMINOPHEN 500 MG TABLET 1000 MG PO (06:52)
[2024-03-04] MEDS: IPRATROPIUM 0.5 MG/ALBUTEROL SULFATE 2.5 MG AMPUL.NEB 3 ML NEBULIZE ×3 (07:13→19:43)
[2024-03-04 07:26] LABS: Glucose Point of Care 210 mg/dl (65-105)
[2024-03-04] MEDS: ENOXAPARIN 80 MG/0.8 ML SYRINGE 140 MG SUB-Q ×2 (08:20→20:51)
[2024-03-04] MEDS: INSULIN ASPART (*BKC) 100 UNITS/ML SUB-Q ×2 (08:21→11:33)
[2024-03-04] MEDS: EMPAGLIFLOZIN 25 MG TABLET PO (08:21)
[2024-03-04] MEDS: GLIMEPIRIDE 2 MG TABLET 4 MG PO (08:21)
[2024-03-04] MEDS: ATORVASTATIN 40 MG TABLET PO (08:21)
[2024-03-04 11:09] LABS: Folic Acid 15.4 ng/mL (2.76->20)
--- NOTE | 2024-03-04 11:22 | WPDINTPN ---
Progress Note: A&P Assessment and Plan (1) Severe sepsis: Code(s): A41.9 - Sepsis, unspecified organism; R65.20 - Severe sepsis without septic shock Status: Acute Assessment and Plan: Patient presented with fevers and chills, malaise, hypotension requiring 4 L IV fluid bolus at the outside hospital ER despite which her blood pressures are low, patient was briefly started on phenylephrine and transferred to the ICU at [facility] -upon her arrival here at the ICU, blood pressures were stable, phenylephrine was discontinued, and patient remains off vasopressor -lactic acid 2.1 on admission, 1.4 this morning -blood pressures remain stable, not requiring any vasopressors -03/02/2024 blood cultures obtained and pending -03/22/2024 urine cultures obtained and pending -03/03: MRSA screen negative -patient started on Zosyn (03/02), will continue for now -DC vancomycin -03/02/2024 CTA chest: 1. No pulmonary embolus. 2. 6.5 cm mass in the spleen, which may be benign or less likely malignant. PET/CT is recommended. -03/02/2024 chest x-ray: No acute cardiopulmonary disease (2) History of pulmonary embolism: Code(s): Z86.711 - Personal history of pulmonary embolism Status: Inactive Assessment and Plan: Patient has a history of pulmonary embolism on Coumadin, -03/04: INR this morning is subtherapeutic - 1.5 -started therapeutic Lovenox to bridge for subtherapeutic INR, Coumadin orders are in place -patient takes Coumadin on Tuesday, Tuesday and Tuesday, she may require daily dosing (3) Hypothyroidism: Code(s): E03.9 - Hypothyroidism, unspecified Status: Acute Assessment and Plan: Continue levothyroxine (4) Hyperlipidemia: Code(s): E78.5 - Hyperlipidemia, unspecified Status: Acute Assessment and Plan: Continue home statin (5) GERD (gastroesophageal reflux disease): Code(s): K21.9 - Gastro-esophageal reflux disease without esophagitis Status: Acute Assessment and Plan: Continue home Protonix (6) Diabetes: Code(s): E11.9 - Type 2 diabetes mellitus without complications Status: Acute Assessment and Plan: Has a history of diabetes, with hyperglycemia. Patient on semaglutide, Jardiance, glimepiride at home -continue home medications -A1c is 10.3 this admission -continue Accu-Cheks and sliding scale insulin (7) Hypertension: Code(s): I10 - Essential (primary) hypertension Status: Acute Assessment and Plan: Patient has a history of essential hypertension on lisinopril/hydrochlorothiazide 10/12.5 mg tab at home -will hold antihypertensives at this time given patient with severe sepsis and hypotension Plan DVT prophylaxis: Therapeutic Lovenox to bridge for subtherapeutic INR, Coumadin orders are in place Stress ulcer prophylaxis: Protonix Nutrition: Diabetic diet Code Status: Full code Critical Care Time Spent: 31 minutes Patient may transfer out of the ICU if okay with hospitalist Discussed with patient and her spouse, updated with her condition and plan of care. I answered all questions Due to a high probability of clinically significant, life threatening deterioration, the patient required my highest level of preparedness to intervene emergently and I personally spent this critical care time directly and personally managing the patient. This critical care time included obtaining a history; examining the patient; pulse oximetry; ordering and review of studies; arranging urgent treatment with development of a management plan; evaluation of patient's response to treatment; frequent reassessment; and discussions with other providers. It was exclusive of separately billable procedures and treating other patients and teaching time. Please see Assessment and Plan section and the rest of the note for further information on patient assessment and treatment This dictation may have been done utilizing a vo
[2024-03-04] MEDS: LORATADINE 10 MG TABLET PO (11:35)
[2024-03-04 11:42] LABS: Glucose Point of Care 291 mg/dl (65-105)
--- NOTE | 2024-03-04 14:18 | PM.IMPN ---
Progress Note: A&P Assessment and Plan (1) Severe sepsis: Code(s): A41.9 - Sepsis, unspecified organism; R65.20 - Severe sepsis without septic shock Status: Acute Assessment and Plan: Patient presented with fevers and chills, malaise, hypotension requiring 4 L IV fluid bolus at the outside hospital ER despite which her blood pressures are low, patient was briefly started on phenylephrine and transferred to the ICU at [facility] -upon her arrival here at the ICU, blood pressures were stable, phenylephrine was discontinued, and patient remains off vasopressor -lactic acid 2.1 on admission, 1.4 this morning -blood pressures remain stable, not requiring any vasopressors -03/02/2024 blood cultures obtained and pending -03/22/2024 urine cultures obtained and pending -03/03: MRSA screen negative CT chest ngative for PE and pneumonia Continue Zosyn, Vanc discontinued (2) History of pulmonary embolism: Code(s): Z86.711 - Personal history of pulmonary embolism Status: Inactive Assessment and Plan: Patient has a history of pulmonary embolism on Coumadin, -03/04: INR this morning is subtherapeutic - 1.5 -started therapeutic Lovenox to bridge for subtherapeutic INR, Coumadin orders are in place -patient takes Coumadin on Tuesday, Tuesday and Tuesday, she may require daily dosing (3) Hypothyroidism: Code(s): E03.9 - Hypothyroidism, unspecified Status: Acute Assessment and Plan: Continue levothyroxine (4) Hyperlipidemia: Code(s): E78.5 - Hyperlipidemia, unspecified Status: Acute Assessment and Plan: Continue home statin (5) GERD (gastroesophageal reflux disease): Code(s): K21.9 - Gastro-esophageal reflux disease without esophagitis Status: Acute Assessment and Plan: Continue home Protonix (6) Diabetes: Code(s): E11.9 - Type 2 diabetes mellitus without complications Status: Acute Assessment and Plan: Hold home regiment SSi with accucheks and adjust with clinical course (7) Hypertension: Code(s): I10 - Essential (primary) hypertension Status: Acute Assessment and Plan: titrate home meds with clinical course Plan DVT prophylaxis: Therapeutic Lovenox to bridge for subtherapeutic INR, Coumadin orders are in place Stress ulcer prophylaxis: Protonix Nutrition: Diabetic diet Code Status: Full code Subjective Date/time seen: 03/04/24 14:18 Interval history: Patient off Pressors and will transfer today out of ICU Culture pending Review of Systems Review of Systems: All other systems reviewed and negative except as noted in history above. All systems reviewed & are unremarkable except as noted in HPI and below Exam Narrative: General: Pleasant female in no acute distress HEENT:? Pupils equal and reactive, sclera is clear, moist oral mucosa Neck:? Supple Respiratory:? Clear to auscultation bilaterally, no wheezing, adequate air entry Cardiac:? S1-S2 is normal, regular rate and rhythm Abdomen:? Soft, nontender, nondistended, obese, normoactive bowel sounds Extremities:? Trace edema, path of the pedal pulses Neuro:? Patient is awake, alert, oriented x3, nonfocal, answers to questions appropriately and follows simple commands in all extremities Skin:? Warm and dry Psych:? Normal mentation and affect Objective Data Vital Signs Vital Signs: Vital Signs - 24 hr 03/03/24 14:23 03/03/24 16:00 03/03/24 15:37 Temperature 97.6 F Pulse Rate 80 82 83 Respiratory Rate 20 24 H Blood Pressure 96/60 L Pulse Oximetry 93 Oxygen Delivery Oxygen Flow Rate Fraction of Inspired Oxygen 03/03/24 16:54 03/03/24 16:00 03/03/24 18:00 Temperature Pulse Rate 85 86 Respiratory Rate 21 H Blood Pressure 108/69 Pulse Oximetry 95 95 Oxygen Delivery Room Air Oxygen Flow Rate Fraction of Inspired Oxygen 03/03/24 18:41 03/03/24 18:00 03/03/24
--- NOTE | 2024-03-04 15:37 | PC.NURSE ---
SBAR sent to receiving unit. Receiving unit made aware.
--- NOTE | 2024-03-04 16:47 | PC.NURSE ---
Report given to LUIS Easley at 4395. All questions and plan of care reviewed. Patient to be transferred to [facility] medical room 248.
[2024-03-04 16:54] LABS: Glucose Point of Care 155 mg/dl (65-105)
--- NOTE | 2024-03-04 17:19 | PC.NURSE ---
Patient arrived to unit from ICU
--- NOTE | 2024-03-04 20:04 | PC.NURSE ---
Patient transferred to [facility] medical department at 1722. All belonging sent with patient. Patient transported via wheelchair. Medical RN to resume patient care.
[2024-03-04 20:23] LABS: Glucose Point of Care 163 mg/dl (65-105)
[2024-03-04] MEDS: PANTOPRAZOLE 40 MG TABLET PO (20:51)
[2024-03-05] VITALS: BP 116/70; PULSE 86; RESP 18; TEMP 36.7; O2SAT 96
[2024-03-05] MEDS: PIPERACILLN/TAZ 3.375GM/NS50ML 3.375 GM/50 ML BAG IVPB ×2 (02:09→05:54)
--- NOTE | 2024-03-05 03:09 | PCRCNOTE ---
Patient refused 0200 updraft treatment stating she does not want to be awakened and that she has not had trouble breathing since she has been here.
[2024-03-05] MEDS: ACETAMINOPHEN 325 MG TABLET 650 MG PO (03:52)
--- NOTE | 2024-03-05 03:59 | PC.NURSE ---
Patient called nursing station complaining of right leg pain and concerns for DVT. Aviation Electronics Technician assessed leg and no swelling, warmed to skin or redness noted. Doppler of pulse was regular. Tylenol was given and patient was repositioned. securities underwriter will continue to monitor.
[2024-03-05 05:36] LABS: Basophils Percent Auto 0.4 % (0.2-1.2); Eosinophils Absolute Auto 0.2 K/mm3 (0-0.3); Eosinophils Percent Auto 3.6 % (0-4.4); Hematocrit 37.2 % (37.0-47.0); Immature Granulocyte Absolute 0.03 K/mm3 (0.00-0.031); Immature Granulocyte Percent A 0.5 % (0-0.5); Lymphocytes Absolute Auto 1.53 K/mm3 (0.9-3.2); Lymphocytes Percent Auto 27.4 % (18.3-44.2); Mean Corpuscular HGB Conc 32.3 g/dl (32-36); Mean Corpuscular Hemoglobin 34.3 pg (26-34); Mean Corpuscular Volume 106.3 fl (80-100); Monocytes Absolute Auto 0.6 K/mm3 (0.1-0.6); Monocytes Percent Auto 9.9 % (2.6-8.5); Neutrophils Absolute Auto 3.3 K/mm3 (1.3-6.7); Neutrophils Percent Auto 58.2 % (45.5-73.1); Platelet Count Result 153 k/mm3 (150-375); Red Cell Distribution Width 13.5 % (11.5-14.5); White Blood Count 5.6 K/mm3 (4.5-10.0)
[2024-03-05 05:47] LABS: INR 1.3; Prothrombin Time 16.1 Seconds (11.1-14.7)
[2024-03-05 05:49] LABS: Alanine Aminotransferase 16 U/L (6-35); Albumin Level 3.1 g/dL (3.5-5.1); Alkaline Phosphatase 60 U/L (38-126); Anion Gap 5 mmol/L (4-12); Aspartate Amino Transferase 18 U/L (14-36); Bilirubin,Total 0.7 mg/dL (0.2-1.3); Blood Urea Nitrogen 11 mg/dL (7-17); Calcium 8.3 mg/dL (8.4-10.2); Carbon Dioxide 28 mmol/L (22-30); Chloride 109 mmol/L (98-107); Estimated CRCL calculation 67 ml/min; Estimated Glomerular Filt Rate > 60; Glucose 134 mg/dL (65-110); Sodium 142 mmol/L (137-145)
[2024-03-05 05:54] LABS: Macrocytosis 1+ (NORMAL); Platelet Estimate Adequate (Adequate)
[2024-03-05] MEDS: CENTRAL LINE FLUSH 10 ML IV PUSH (05:54)
[2024-03-05] MEDS: LEVOTHYROXINE SODIUM 75 MCG TABLET PO (05:54)
[2024-03-05 05:55] LABS: Schistocytes None Seen
[2024-03-05 06:36] VITALS: BP 144/75; PULSE 94; RESP 18; TEMP 36.7; O2SAT 90
[2024-03-05 08:12] LABS: Glucose Point of Care 136 mg/dl (65-105)
[2024-03-05] MEDS: EMPAGLIFLOZIN 25 MG TABLET PO (08:30)
[2024-03-05] MEDS: LORATADINE 10 MG TABLET PO (08:30)
[2024-03-05] MEDS: ATORVASTATIN 40 MG TABLET PO (08:30)
[2024-03-05] MEDS: GLIMEPIRIDE 2 MG TABLET 4 MG PO (08:30)
[2024-03-05] MEDS: ENOXAPARIN 80 MG/0.8 ML SYRINGE 140 MG SUB-Q (09:43)
--- NOTE | 2024-03-05 10:54 | PM.DS ---
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 Patient noted that she presented to an outside ER on account of her choosing Reglan, which started about 7:00 p.m. last night with shortness of breath but denies any chest pain vomiting abdominal pain no diarrhea dysuria urinary frequency no focal symptoms. She reported she presented to the ER on account of persistent symptoms. [facility] at. Our transfer facility patient was noted to be hypertensive with tachycardia and was given 4 L of IV fluids pressure trend. CTA chest showed sees 0.5 cm splenic mass and PET/CT scan recommended. No PE or lung findings. UA positive for nitrates and WBCs 0-3. Patient was started on antibiotics and transferred to our facility for higher level of care. Patietnt was initialy managed in the ICU, however she remained off pressors. Blood and urine cultures were obtained and she was placed on Zosyn and Vanc. MRSA was negative and imaging on admission were negative. Vancomycin was discontinued. however patient continued to improved and has made marked progress and she is now at her baseline. INR is subtherapeutic however she noted she follows closely wiht PCP and has monitoring machine at home Patient is discharged on 5 more days of Augmentin and 2 days of Lovenox full dose. I discussed with her to stop the Lovenox once INR increased to 2 and above. She expressed understanding and was present ALso she will follow up [facility] PCP for continued monitoring and adjustment. Also patient will follow with PCP for PET/Ct scan for splenic mass. Assessment and Plan (1) Severe sepsis: Code(s): A41.9 - Sepsis, unspecified organism; R65.20 - Severe sepsis without septic shock Status: Acute Assessment and Plan: Patient presented with fevers and chills, malaise, hypotension requiring 4 L IV fluid bolus at the outside hospital ER despite which her blood pressures are low, patient was briefly started on phenylephrine and transferred to the ICU at [facility] -upon her arrival here at the ICU, blood pressures were stable, phenylephrine was discontinued, and patient remains off vasopressor -lactic acid 2.1 on admission, 1.4 this morning -blood pressures remain stable, not requiring any vasopressors -03/02/2024 blood cultures obtained and pending -03/22/2024 urine cultures obtained and pending -03/03: MRSA screen negative CT chest ngative for PE and pneumonia Continue Zosyn, Vanc discontinued Discharged on 5 more days of Augmentin (2) History of pulmonary embolism: Code(s): Z86.711 - Personal history of pulmonary embolism Status: Inactive Assessment and Plan: Patient has a history of pulmonary embolism on Coumadin, -03/04: INR this morning is subtherapeutic - 1.5 -started therapeutic Lovenox to bridge for subtherapeutic INR, Coumadin orders are in place -patient takes Coumadin on Tuesday, Tuesday and Tuesday, she may require daily dosing (3) Hypothyroidism: Code(s): E03.9 - Hypothyroidism, unspecified Status: Acute Assessment and Plan: Continue levothyroxine (4) Hyperlipidemia: Code(s): E78.5 - Hyperlipidemia, unspecified Status: Acute Assessment and Plan: Continue home statin (5) GERD (gastroesophageal reflux disease): Code(s): K21.9 - Gastro-esophageal reflux disease without esophagitis Status: Acute Assessment and Plan: Continue home Protonix (6) Diabetes: Code(s): E11.9 - Type 2 diabetes mellitus without complications Status: Acute Assessment and Plan: continue
== END 2024-03-05 12:58 | disposition home or self-care (01) | DRG 872 ==
LOC: ANHICU 07:46 → ANH2MED 03-04 17:34
PROVIDERS: Internal Medicine; Admitting Provider Internal Medicine; PCP Family Medicine; Visit Provider Internal Medicine
DX: A41.9 Sepsis, unspecified organism (principal); N39.0 Urinary tract infection, site not specified; R65.20 Severe sepsis without septic shock; I10 Essential (primary) hypertension; E11.9 Type 2 diabetes mellitus without complications; E03.9 Hypothyroidism, unspecified; E78.5 Hyperlipidemia, unspecified; K21.9 Gastro-esophageal reflux disease without esophagitis; Z79.01 Long term (current) use of anticoagulants; Z86.711 Personal history of pulmonary embolism; Z85.528 Personal history of other malignant neoplasm of kidney
CPT/HCPCS: 36415; 36569; 80048; 80053; 82607; 82746; 82948; 83036; 83605; 83735; 84100; 85025; 85610; 85730; 87641; 94640; A9270; J1650; J1815; J2003; J2543; J3370

== ENCOUNTER 2025-04-07 07:48 | Emergency (ER) | payer MEDICARE, SELFPAY ==
--- NOTE | ~2025-04-07 | XR_ITS ---
Examination: XR chest 1V portable Clinical History: Chest pain Comparison: 03/03/2024 Technique: Portable AP Findings: Heart size normal. Lungs clear. No acute bony abnormality. IMPRESSION: 1. No acute cardiopulmonary findings given portable technique. Reviewed, dictated and finalized at location R. PLE SKIDDER OPERATOR
[2025-04-07 07:48] VITALS: BP 109/78; PULSE 92; RESP 20; TEMP 36.6; O2SAT 95
--- OUTSIDE RECORDS SUMMARY | 2025-04-07 07:50 | XMS_ITS | Encounter Summary ---
Author Organization [facility] Medical [facility] Address [address] [address] Care Team Providers Care Per Diem Physical Therapist Name Role Phone Ty Delacruz MD Primary Care Provider [phone] Ty Delacruz MD Primary Care Provider [phone] Ty Delacruz MD Primary Care Provider [phone] Ty Delacruz MD Primary Care Provider [phone] Ty Delacruz MD Primary Care Provider [phone] Ty Delacruz MD Primary Care Provider [phone] Ty Delacruz MD Primary Care Provider [phone] Ty Delacruz MD Primary Care Provider [phone] Ty Delacruz MD Primary Care Provider [phone] Calvin Reddy MD Unavailable [phone] Suzanna Nielsen RN Unavailable [phone] Suzanna Nielsen RN Unavailable [phone] Precious Cooper MD Primary Care Provide r Alessandra Loaiza MD Unavailable [phone] Josselin Godfrey OD Unavailable [phone] Encounter Details Date Type Department Care Team (Late st Contact Info) Description 1950 Orders Only [facility] Information Management [address] [place] [id number] Scanning, Provider Social History Tobacco Use Types Packs/Day Years Used Date Smoking Tobacco: Never Assessed Comments Unknown Sex and Gender Information Value Date Recorded Sex Assigned at Not on file 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 Gender Identity Not on file Sexual Orientation Not on file documented as of this encounter Plan of Treatment Not on file documented as of this encounter Procedures Procedure Name Priority Date/Time Associated Diagnosis Comments SCAN - LABS 1950 documented in this encounter Results * SCAN - LABS (1950) us Provider Scanning Edited Result - Final documented in this encounter Visit Diagnoses Not on filedocumented in this encounter Care Teams Per Diem Physical Therapist Relationship Specialty Start Date End Date Ty Delacruz MD PCP - General 08/27/16 07/24/17 Ty Delacruz MD PCP - General 07/12/16 08/26/16 Ty Delacruz MD PCP - General 10/04/12 07/11/16 Ty Delacruz MD PCP - General 08/13/11 10/03/12 Ty Delacruz MD PCP - General 12/04/08 08/12/11 Ty Delacruz MD PCP - General 07/28/07 12/03/08 Ty Delacruz MD PCP - General 06/07/06 07/27/07 Ty Delacruz MD PCP - General 06/02/06 06/06/06 Ty Delacruz MD PCP - General Internal Medicine 07/25/17 11/15/21 Precious Cooper MD [address] [place] [address] PCP - General Family Medicine 11/16/21 Calvin Reddy MD Surgeon General Surgery 06/23/19 Suzanna Nielsen, RN [address] [place] [address] [address] [place] [address] Book Cutter 06/25/19 07/16/19 Suzanna Nielsen, RN [address] [place] [address] [address] [place] [address] Book Cutter 03/04/20 03/17/20 Alessandra Loaiza MD [address] [place] [address] Consulting Physician Endocrinology 12/07/21 Josselin Godfrey OD [address] [place] [address] [place] [address] Optometry 12/07/21 documented as of this encounter
--- OUTSIDE RECORDS SUMMARY | 2025-04-07 07:50 | XMS_ITS | Encounter Summary ---
Author Organization [facility] Healthcare Address [address] [place] [address] Care Team Providers Care Slurry Plant Operator Name Role Phone Calvin Reddy MD Unavailable [phone] Precious Cooper MD Primary Care Provide r Alessandra Loaiza MD Unavailable [phone] Josselin Godfrey OD Unavailable [phone] Encounter Details Date Type Department Care Team (Late st Contact Info) Description 04/04/2025 Orders Only [facility] [place] [address] [place] [id number] Scanning, Provider Social History Tobacco Use Types Packs/Day Years Used Date Smoking Tobacco: Never Smokeless Tobacco: Never Alcohol Use Standard Drinks/Week Comments Yes 1 (1 standard drink = 0.6 oz pur e alcohol) occassionally PHQ-2 Answer Date Recorded PHQ-2 Total Score (If total score is 3 or more points, staff should administer the PHQ-9) 0 02/19/2025 Social Connection and Isolation Panel Answer Date Recorded In a typical week, how many times do you talk on the phone with family, friends, or neighbors? More than three times a week 02/12/2025 How often do you get togethe r with friends or relatives? More than three times a week 02/12/2025 How often do you attend chur or mu-ism services? Never 02/12/2025 Do you belong to any clubs o r organizations such as mosque groups, unions, fraternal or athletic groups, or school groups? No 02/12/2025 How often do you attend meet ings of the clubs or organizations you belong to? Never 02/12/2025 Are you , , di vorced, , never , or living with a partner? 02/12/2025 AUDIT-C Answer Date Recorded Q1: How often do you have a drink containing alc ohol? 2-4 times a month 02/11/2025 Q2: How many drinks containi ng alcohol do you have on a typical day when you are drinking? 1 or 2 02/11/2025 Q3: How often do you have si x or more drinks on one occasion? Never 02/11/2025 Overall Financial Resource Strain (CARDIA) Answe r Date Recorded How hard is it for you to pa y for the very basics like food, housing, medical care, and heating? Not hard at all 02/12/2025 Hunger Vital Sign Answer Date Recorded Within the past 12 months, y ou worried that your food would run out before you got the money to buy more. Never true 02/13/20 25 Within the past 12 months, t he food you bought just didn't last and you didn't have money to get more. Never true 02/12/2025 PRAPARE - Transportation Answer Date Re corded In the past 12 months, has l ack of transportation kept you from medical appointments or from getting medications? No 01/28 In the past 12 months, has l ack of transportation kept you from meetings, work, or from getting things needed for daily living? No 02/12/2025 Housing Stability Vital Sign Answer Mitesh e Recorded In the last 12 months, was t here a time when you were not able to pay the mortgage or rent on time? No 02/12/2025 In the past 12 months, how m any times have you moved where you were living? 0 02/12/2025 At any time in the past 12 m [facility], were you homeless or living in a [place] care facility (including now)? No 02/12/2025 [facility] Utilities Answer Date Recorded In the past 12 months has th e electric, gas, oil, or water company threatened to shut off services in your home? No 02/12/2025 Personal Safety Answer Date Recorded Have you ever been in or are you currently in a harmful physical or emotional relationship or is someone making you feel afraid or unsafe? 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 Gender Identity Not on file Sexual Orientation Not on file documented as of this encounter Plan of Treatment Not on file documented as of this encounter Procedures Procedure Name Priority Date/Time Associated Diagnosis Comments SCAN - LABS 04/04/2025 documented in this encounter Results * SCAN - LABS (04/04/2025) us Provider Scanning Final Result documented in this encounter Visit Diagnoses Not on filedocumented in this encounter Care Teams Slurry Plant Operator Relationship Specialty Start Date End Date Precious Cooper MD [address] [facility] [address] [facility] [place] [address] PCP - General Family Medicine 11/16/21 Calvin Reddy MD Surgeon General Surgery 06/23/19 Alessandra Loaiza MD [address] [facility] [address] [place], [place] [address], [place] [address] Consulting Physician Endocrinology 12/07/21 Josselin Godfrey OD [address] [place] [address] [place] [address] Optometry 12/07/21 documented as of this encounter
--- OUTSIDE RECORDS SUMMARY | 2025-04-07 07:50 | XMS_ITS | Encounter Summary ---
Author Organization [facility] Healthcare Address [address] [place] [address] Care Team Providers Care Truck Farmer Name Role Phone Calvin Reddy MD Unavailable [phone] Precious Cooper MD Primary Care Provide r Alessandra Loaiza MD Unavailable [phone] Josselin Godfrey OD Unavailable [phone] Encounter Details Date Type Department Care Team (Late st Contact Info) Description 02/07/2025 Results Follow-Up [facility] Medical Group Diabetes Endocrine Care at [address] [place] [address] Riley Rubio, [address] [address] Albumin Creatinine Ratio, Urine Social History Tobacco Use Types Packs/Day Years Used Date Smoking Tobacco: Never Smokeless Tobacco: Never Alcohol Use Standard Drinks/Week Comments Yes 0 (1 standard drink = 0.6 oz pur e alcohol) occassionally PHQ-2 Answer Date Recorded PHQ-2 Total Score (If total score is 3 or more points, staff should administer the PHQ-9) 0 02/11/2025 AUDIT-C Answer Date Recorded Q1: How often do you have a drink containing alc ohol? 2-4 times a month 02/11/2025 Q2: How many drinks containi ng alcohol do you have on a typical day when you are drinking? 1 or 2 02/11/2025 Q3: How often do you have si x or more drinks on one occasion? Never 02/11/2025 Personal Safety Answer Date Recorded Have you ever been in or are you currently in a harmful physical or emotional relationship or is someone making you feel afraid or unsafe? 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 Gender Identity Not on file Sexual Orientation Not on file documented as of this encounter Functional Status * BP Location Answer Date of Assessment Author Left arm 02/07/2025 8:27 AM Quang Colvin MA * BP Location Answer Date of Assessment Author Left arm 02/07/2025 8:27 AM Quang Colvin MA documented as of this encounter Plan of Treatment Not on file documented as of this encounter Visit Diagnoses Not on filedocumented in this encounter Care Teams Truck Farmer Relationship Specialty Start Date End Date Precious Cooper MD [address] [facility] [place] [address] PCP - General Family Medicine 11/16/21 Calvin Reddy MD Surgeon General Surgery 06/23/19 Alessandra Loaiza MD [address] [facility] [place] [address] Consulting Physician Endocrinology 12/07/21 Josselin Godfrey OD [address] [place] [address] [place] [address] Optometry 12/07/21 documented as of this encounter
[2025-04-07 08:00] VITALS: PULSE 85
--- NOTE | 2025-04-07 08:05 | ED.CHESTPAIN ---
HPI - Chest Pain General Chief Complaint: Chest Pain Stated Complaint: congestion and palpitations Time Seen by Provider: 04/07/25 08:05 Source: patient and family Mode of arrival: ambulatory Limitations: no limitations History of Present Illness HPI narrative: Patient is a 74-year-old female with lung disease in using oxygen for the past month here with chest pain. She was found a month ago to have a left upper lung inflammation and started her on oxygen. Chest pressure/fullness and feels like she has to burp at this time to relieve the pressure. The pain has resolved at this time no shortness of breath. No nausea vomiting or diarrhea. No abdominal pain. MD complaint: other (Chest pressure) Pertinent past history: other (Pulmonary disease with newly added home oxygen, hyperlipidemia, diabetes 2, hypothyroidism, PE with Coumadin, hypertension) Onset (ago): day(s) (3) Timing of current episode: episodic Prior episodes: Yes Onset: during rest and during exertion Pain location: substernal and subxiphoid Pain radiation: none Severity: mild Pain scale (0-10): 3 Quality: fullness Relieving factors: nothing Exacerbating factors: nothing Context: other (Patient has been recently hospitalized with hypoxia/inflammation of the lung and now having some chest pain/pressure/fullness for the past 3 days) Associated symptoms: other (None) Treatment prior to arrival: none Risk Factors Coronary artery disease risk factors: diabetes, hyperlipidemia and hypertension Thoracic aortic dissection risk factors: none Pulmonary embolism risk factors: history of pulmonary embolism Related Data On Oral Contraceptives: No Home Medications ?Medication ?Instructions ?Recorded ?Confirmed ?Last Taken ?Type atorvastatin 40 mg tablet 40 mg PO DAILY 01/06/24 03/03/24 Unknown History glimepiride 2 mg tablet 4 mg PO DAILY 01/06/24 03/03/24 Unknown History levothyroxine 75 mcg tablet 1 mcg PO DAILY 01/06/24 03/03/24 Unknown History lisinopril 10 1 tablet PO DAILY 01/06/24 03/03/24 Unknown History mg-hydrochlorothiazide 12.5 mg tablet warfarin 2 mg tablet 5 mg PO DAILY 01/06/24 03/03/24 Unknown History albuterol sulfate 90 mcg/actuation 2 puff inhalation Q6H PRN 03/03/24 03/03/24 Unknown History aerosol inhaler (Ventolin HFA) Shortness Of Breath Or Wheezing empagliflozin 25 mg tablet 25 mg PO DAILY 03/03/24 03/03/24 Unknown History (Jardiance) insulin glargine 100 18 unit subcut DAILY 04/07/25 Unknown History unit-lixisenatide 33 mcg/mL subcutaneous pen (Soliqua 100/33) Allergies Allergy/AdvReac Type Severity Reaction Status Date / Time No Known Allergies Allergy Unknown Verified 04/07/25 08:07 Review of Systems Review of Systems: All systems reviewed & are unremarkable except as noted in HPI and below Constitutional: Constitutional: Reports no additional constitutional complaints Eyes: Eyes: Reports no additional eye complaints ENT: Reports system reviewed and no additional complaints, except as documented Cardiovascular: Cardiovascular: Reports no additional cardiovascular complaints Respiratory: Respiratory: Reports no additional respiratory complaints Gastrointestinal: Gastrointestinal: Reports no additional gastrointestinal complaints Genitourinary: Genitourinary: Reports no additional female genitourinary complaints Musculoskeletal: Musculoskeletal: Reports no additional musculoskeletal complaints Integumentary/Breasts: Skin/Breast: Reports system reviewed and no additional complaints, except as docu Neurologic: Reports system reviewed and no additional complaints, except as documented Psychiatric: Psychiatric: Reports no additional psychiatric complaints Endocrine: Endocrine: Reports no additional endocrine complaints Hematologic/Lymphatic: Hematologic/Lymphatic: Reports no additional hematologic/lymphatic complaints Allergic/Immunologic: Allergic/Immunologic: Reports no additional allergic/immunologic complaints PMFSH Family History Family History Father Cerebrovascular accident Social History Social History Alcohol intake: never Substance use: never Substance use type: does not use Do You Feel Safe in your Home?: Yes Lack of Transportation: No Lack of Food: Never True Current Housing: I Have Housing Concerned About Future Housing: No Difficulty Paying Gas/Electric Bills: No Difficulty Paying for Meds: No Currently Unemployed: No Education: High School Diploma/GED Difficulty w/ Childcare or Family Care: No Spiritual care concerns: No Exam Const: General: healthy appearing Nutritional Appearance: well nourished Orientation/consciousness: patient oriented x3 HENMT: Head: normal to inspection Ears: external ears normal Face/Nose/Sinus: Normal external nose present Eyes: Conjunctivae: conjunctivae normal Pupils: Equal, round and reactive pupils present EOM: EOMs intact bilaterally Neck: Neck: normal visual inspection Chest: Chest palpation & inspection: normal inspection of the chest Resp: Effort & Inspection: normal respiratory effort and not labored Auscultation: clear to auscultation bilaterally and no crackles Cardio: Rate: regular rate Rhythm: regular rhythm Heart sounds: no murmurs GI: Inspection: non-distended GI Palp: Yes Soft to palpation and No Tenderness to palpation present (GI) Auscultation: normal bowel sounds : General: Yes bladder normal to palpation Back/Spine/Pelvis: Back: no CVA tenderness Skin: General skin exam: normal color Rashes: no rashes Wounds: no wounds Neuro: General: patient oriented x3, moves all extremities and no meningeal signs Cranial nerves: Yes Nystagmus not present Speech: normal speech Gait exam (Neuro): gait abnormal (Wheelchair) Extrem: General: normal to inspection, no clubbing, cyanosis or edema and no pedal edema Psych: Mental Status: mental status grossly normal Affect: normal affect Attitude: cooperative Course Vital Signs Vital signs: Vital Signs Temperature 36.6 C 04/07/25 07:48 Pulse Rate 92 04/07/25 07:48 Respiratory Rate 20 04/07/25 07:48 Blood Pressure 109/78 04/07/25 07:48 Pulse Oximetry 95 04/07/25 07:48 Oxygen Delivery Nasal Cannula 04/07/25 07:48 Oxygen Flow Rate 2 04/07/25 07:48 Temperature 36.6 C 04/07/25 07:48 Pulse Rate 84 04/07/25 08:55 Respiratory Rate 20 04/07/25 08:55 Blood Pressure 123/69 04/07/25 08:55 Pulse Oximetry 100 04/07/25 08:55 Oxygen Delivery Nasal Cannula 04/07/25 08:55 Oxygen Flow Rate 2 04/07/25 08:55 MDM - Chest Pain MDM Narrative Medical decision making narrative: Patient is a 74-year-old female with chest pressure/fullness for the past 3 days and a recent hospitalization for lung inflammation and now on home O2. Cardiopulmonary workup. He is on Coumadin for PE in the past and we will look into that possibility again at this time. Lab Data Attestation: I reviewed the patient's lab results. 04/07/25 08:37 04/07/25 08:38 Labs: Lab Results 04/07/25 04/07/25 04/07/25 Range/Units 08:30 08:37 08:38 WBC 9.2 (4.8-10.8) K/mm3 RBC 4.43 (4.20-5.40) M/mm3 Hgb 14.8 H (11.7-13.8) g/dL Hct 46.8 H (35.0-42.0) % MCV 105.6 H (78.0-102.0) fL MCH 33.4 H (27.0-31.0) pg MCHC 31.6 L (32-36) g/dL RDW 14.2 (11.6-14.4) % Plt Count 185 (150-420) K/mm3 MPV 10.0 (9.2-11.8) fl Immature Gran % (Auto) 0.4 H (0.0-0.0) % Neut % (Auto) 72.9 H (50.0-70.0) % Lymph % (Auto) 15.9 L (18.0-42.0) % [place] % (Auto) 8.7 (2.0-11.0) % Eos % (Auto) 1.6 (1.0-6.0) % Baso % (Auto) 0.5 (0.0-1.0) % Lymph # (Auto) 1.47 (1.10-4.50) K/mm3 [place] # (Auto) 0.80 (0.10-0.90) K/mm3 Eos # (Auto) 0.15 (0.02-0.50) K/mm3 Baso # (Auto) 0.05 (0.00-0.10) K/mm3 Abs Immat Gran (auto) 0.04 H (0.00-0.00) K/mm3 Absolute Neuts (auto) 6.72 (1.70-7.20) K/mm3 Absolute Nucleated RBC 0.00 (0.00-0.00) K/mm3 Nucleated RBC % 0.0 (0-0.0) % PT 30.0 H (9.50-12.1) Seconds INR 3.0 APTT 37.0 H (23.9-30.70) Sec D-Dimer 0.32 (0.19-0.50) mg/L Sodium 141 (137-145) mmol/L Potassium 4.1 (3.4-5.0) mmol/L Chloride 105 (98-107) mmol/L Carbon Dioxide 28 (22-30) mmol/L Anion Gap 8 (4-12) mmol/L BUN 35 H D (7-17) mg/dL Creatinine 1.01 H (0.7-1.0) mg/dL Estim Creat Clear Calc 58 ml/min Estimated GFR 54 L (59 - ) Glucose 189 H (65-110) mg/dL Calculated Osmolality 305 H (285-295) mOsm/kg Lactic Acid 1.3 (0.7-2.0) mmol/L Calcium 9.9 (8.4-10.2) mg/dL Magnesium 2.0 (1.6-2.3) mg/dL Total Bilirubin 1.5 H (0.2-1.3) mg/dL AST 25 (14-36) U/L ALT 21 (6-35) U/L Alkaline Phosphatase 54 (38-126) U/L Troponin I < 0.012 (0.000-0.034) ng/mL NT-Pro-B Natriuret Pep 27 (19.9-100) pg/mL Total Protein 6.8 (6.3-8.2) g/dL Albumin 4.2 (3.5-5.1) g/dL Lipase 62 (23-300) U/L Urine Color Light yellow (Yellow) Urine Appearance Clear (Clear) Urine pH 5.5 (5.0-8.0) Ur Specific [place] 1.015 (1.010-1.020) Urine Protein Negative (Negative) Urine Glucose (UA) 3+ H (Negative) Urine Ketones Negative (Negative) Ur Blood (Man) Negative (Negative) Urine Nitrate Negative (Negative) Urine Bilirubin Negative (Negative) Urine Urobilinogen 0.2 (0.2-1.0) mg/dL Leukocyte Esterase Rfl Negative (Negative) NATASHA/UL Imaging Data Attestation: I personally reviewed and interpreted this imaging study as follows: Radiologist's impression: Chest x-rays negative for acute process ECG Data EKG #1: Attestation: I personally reviewed and interpreted this ECG as follows: ECG completion date: 04/07/25 ECG completion time: 08:21 EKG Interpretation: normal rate, sinus rhythm, PVCs, no ST changes, normal QRS, normal QT and left axis Discharge Plan Discharge Clinical Impression: Chest pain, Chest pain due to GERD Patient Disposition: Home Condition: Stable Instructions: Chest Pain (ED), GERD (Gastroesophageal Reflux Disease) (DC) Additional Instructions: Please follow-up with primary doctor in the next week. Further cardiac testing could be done to include a stress test if continued chest pains. Come back to the emergency room with any further concerns. Patient Language: Icelandic Prescriptions: No Action atorvastatin 40 mg tablet 40 mg PO DAILY glimepiride 2 mg tablet 4 mg PO DAILY levothyroxine 75 mcg tablet 1 mcg PO DAILY warfarin 2 mg tablet 5 mg PO DAILY lisinopril-hydrochlorothiazide 10-12.5 mg tablet 1 tablet PO DAILY Soliqua 100/33 100 unit-33 mcg/mL insulin pen 18 unit subcut DAILY Jardiance 25 mg tablet 25 mg PO DAILY albuterol sulfate [Ventolin HFA] 90 mcg/actuation HFA aerosol inhaler 2 puff INHALATION Q6H PRN (Reason: Shortness Of Breath Or Wheezing) Follow-up/Referrals: Allison,MD Precious [Primary Care Provider, Unknown] Time of Disposition: 09:08
--- NOTE | 2025-04-07 08:06 | ECG_ITS ---
Test Date: 2025-04-07 07:58:46 Measurements Intervals [place] Rate: 91 P: 0 MI: 176 QRS: -56 QRSD: 106 T: 44 QT: 346 QTc: 426 Interpretive Statements SINUS RHYTHM LEFT AXIS DEVIATION [QRS AXIS < -30] PATTERN CONSISTENT WITH PULMONARY DISEASE No previous ECG available for comparison Electronically Signed On 04-08-2025 18:28:05 PARTS SALES COUNTERPERSON by Carie Painter M.D.
[2025-04-07 08:42] LABS: Hematocrit 46.8 % (35.0-42.0); Hemoglobin 14.8 g/dL (11.7-13.8); Immature Granulocyte Percent A 0.4 % (0.0-0.0); Lymphocytes Absolute Auto 1.47 K/mm3 (1.10-4.50); Mean Corpuscular HGB Conc 31.6 g/dL (32-36); Mean Corpuscular Hemoglobin 33.4 pg (27.0-31.0); Mean Corpuscular Volume 105.6 fL (78.0-102.0); Nucleated Red Blood Cells Absolute Auto 0.00 K/mm3 (0.00-0.00); Nucleated Red Blood Cells Perc 0.0 % (0-0.0); Platelet Count Result 185 K/mm3 (150-420); Red Blood Count 4.43 M/mm3 (4.20-5.40); White Blood Count 9.2 K/mm3 (4.8-10.8)
--- NOTE | 2025-04-07 08:51 | PC.NURSE ---
On 04/07/25, the student, [sarahy atkins ], provided care and completed [facility] documentation on this patient. I have reviewed the student's documentation and agree with the findings.
[2025-04-07 08:54] LABS: Add Urine Microscopic? NO; Appearance Urine Clear (Clear); Glucose Urine UA 3+ (Negative); Leukocyte Esterase Ur Negative LEU/UL (Negative); Nitrate Urine Negative (Negative); Specific Grav Ur 1.015 (1.010-1.020)
[2025-04-07 08:55] VITALS: BP 123/69; PULSE 84; RESP 20; O2SAT 100
[2025-04-07 08:58] LABS: INR 3.0; Partial Thromboplastin Time 37.0 Sec (23.9-30.70); Prothrombin Time 30.0 Seconds (9.50-12.1)
[2025-04-07 09:00] LABS: Alanine Aminotransferase 21 U/L (6-35); Albumin Level 4.2 g/dL (3.5-5.1); Alkaline Phosphatase 54 U/L (38-126); Anion Gap 8 mmol/L (4-12); Aspartate Amino Transferase 25 U/L (14-36); Bilirubin,Total 1.5 mg/dL (0.2-1.3); Blood Urea Nitrogen 35 mg/dL (7-17); Calcium 9.9 mg/dL (8.4-10.2); Carbon Dioxide 28 mmol/L (22-30); Chloride 105 mmol/L (98-107); Estimated CRCL calculation 58 ml/min; Estimated Glomerular Filt Rate 54; Glucose 189 mg/dL (65-110); Lipase 62 U/L (23-300); Magnesium 2.0 mg/dL (1.6-2.3); Osmolality Calculated 305 mOsm/kg (285-295); Potassium 4.1 mmol/L (3.4-5.0); Sodium 141 mmol/L (137-145); Total Protein 6.8 g/dL (6.3-8.2)
[2025-04-07 09:08] LABS: NT Pro B Type Natriuretic Pept 27 pg/mL (19.9-100)
[2025-04-07 09:15] LABS: Troponin I < 0.012 ng/mL (0.000-0.034)
== END 2025-04-07 09:29 | disposition home or self-care (01) ==
PROVIDERS: Emergency Provider Emergency Medicine; PCP Family Medicine
DX: K21.9 Gastro-esophageal reflux disease without esophagitis (principal); E11.9 Type 2 diabetes mellitus without complications; E78.5 Hyperlipidemia, unspecified; I10 Essential (primary) hypertension; Z99.81 Dependence on supplemental oxygen; Z79.01 Long term (current) use of anticoagulants; Z79.4 Long term (current) use of insulin; Z86.711 Personal history of pulmonary embolism
CPT/HCPCS: 36415; 71045; 80053; 81003; 83605; 83690; 83735; 83880; 84484; 85025; 85380; 85610; 85730; 93005; 99284